=== PATIENT | female | born 1970 | race Caucasian/White ===

== ENCOUNTER 2016-04-27 11:45 | Emergency (ER) | payer OTHER ==
[~2016-04-27] VITALS: Ht 172.7 cm; Wt 134.3 kg
[~2016-04-27 11:45] MED LIST: ADVIL200 MG PO; ALDACTONE100 MG PO; ALEVE220 M2 PO; ALEVE220 MG PO; ALPRAZOLAM0.5 MG PO; AMOXICILLIN875 MG PO; BUPROPION HCL150 M2 PO; BUPROPION HCL75 MG PO; BUPROPION XL150 MG PO; CALCIUM600 MG PO; CALTRATE 600 +1 EAC1 PO; CELEXA20 MG PO; CHOLESTYRAMINE P4 GM PO; CITALOPRAM HBR20 MG PO; CLARITIN10 M3 PO; COMPLETE M9 MG/15 ML PO; CYMBALTA60 MG PO; DEPAKOTE ER500 MG PO; DEPAKOTE250 MG PO; DICYCLOMINE HCL10 MG PO; EXCEDRIN MIGRA1 EAC3 PO; FLEXERIL10 MG PO; GLUCOPHAGE XR750 MG PO; GLUCOPHAGE1000 MG PO; IMITREX25 MG PO; LISINOPRIL5 MG PO; METFORMIN HCL ER PO; METFORMIN HCL500 MG PO; METFORMIN HCL750 MG PO; METOCLOPRAMIDE10 MG PO; MS CONTIN,ORAMO15 M1 PO; MULTI VITAMIN1 EACH PO; NABUMETONE750 MG PO; NEURONTIN300 MG PO; OMEPRAZOLE40 M1 PO; OXAYDO5 MG PO; PEN-VEE K,VEET500 MG PO; PENNSAID112 GM TP; RANITIDINE HCL150 MG PO; REGLAN10 MG PO; REQUIP0.5 MG PO; SPIRONOLACTONE100 MG PO; SUCRALFATE1 GM PO; ULTRAM50 MG PO; VITAMIN D31000 UNIT PO; VITAMIN D32000 UNI1 PO; VITAMIN D35000 UNIT PO; WELLBUTRIN XL300 MG PO; XANAX0.5 MG PO; ZANTAC300 MG PO; ZESTRIL,PRINIVI10 MG PO; ZESTRIL5 MG PO; ZOCOR10 MG PO; ZOFRAN ODT4 MG PO; ZYRTEC-D1 TABLE1 PO; ZYRTEC10 M3 PO
[2016-04-27] MEDS ORDERED: VENTOLIN HFA18 GM IH (16:27)
[2016-04-27 17:02] VITALS: BP 137/77
== END 2016-04-27 17:03 | disposition home or self-care (01) ==
LOC: EXP 11:45 → EME 11:45 → EXP 17:03
DX: J20.9 Acute bronchitis, unspecified (principal); J02.9 Acute pharyngitis, unspecified; R51 Headache; F17.200 Nicotine dependence, unspecified, uncomplicated
CPT/HCPCS: 71020; 94640; 99281; 99284

== ENCOUNTER 2016-10-10 10:39 | Emergency (ER) | payer OTHER ==
[~2016-10-10] VITALS: Ht 172.7 cm; Wt 124.0 kg
[~2016-10-10 10:39] MED LIST changes: +VENTOLIN HFA18 GM IH
[2016-10-10 10:43] VITALS: BP 159/113
[2016-10-10 11:43] LABS: ADD MIUA? YES; BILIRUBIN NEGATIVE; BLOOD NEGATIVE; COLOR YELLOW ((YELLOW)); GLUCOSE (STRIP) NEGATIVE; KETONES NEGATIVE; LEUKOCYTES NEGATIVE; NITRITE NEGATIVE; PROTEIN (STRIP) NEGATIVE; SPECIFIC GRAVITY 1.006 (1.000-1.030); UROBILINOGEN 0.2 MG/DL (0.2-1.0)
[2016-10-10 12:00] LABS: BACTERIA 3+ /HPF; CALCIUM OXALATE CRYSTALS 2+ /HPF; EPITHELIAL CELLS 2+ /HPF; HYALINE CASTS 0-5 /LPF; MUCUS TRACE /LPF; RED BLOOD CELLS 0-5 /HPF (0-5); UCUL ADDED? YES
[2016-10-10] MEDS ORDERED: LIDODERM 5% P1 PATCH TD (12:58)
== END 2016-10-10 13:05 | disposition home or self-care (01) ==
LOC: EME 10:39
PROVIDERS: Nurse Practitioner Family
DX: M54.5 Low back pain (principal); G89.29 Other chronic pain; M47.896 Other spondylosis, lumbar region; F32.9 Major depressive disorder, single episode, unspecified; F17.200 Nicotine dependence, unspecified, uncomplicated
CPT/HCPCS: 72100; 72202; 81003; 87086; 99281; 99284; J3010

== ENCOUNTER 2017-03-02 18:35 | Emergency (ER) | payer OTHER ==
[~2017-03-02] VITALS: Ht 175.3 cm; Wt 129.0 kg
[~2017-03-02 18:35] MED LIST changes: +LIDODERM 5% P1 PATCH TD
[2017-03-02 20:29] LABS: HEMATOCRIT 36.9 % (36.0-46.0); MCH 27.9 PG (29.0-34.0); MCHC 32.5 G/DL (30.0-36.0); MCV 85.8 FL (83-99); MEAN PLAT.VOLUME 9.1 uM^3 (9.5-12.4); PLATELET COUNT 415 K/uL (156-360); RBC DIS.WIDTH-CV 13.9 % (11.8-14.6); RBC DIS.WIDTH-SD 43.1 % (39-53)
[2017-03-02 20:38] LABS: CHLORIDE 107 mEq/L (99-109); POTASSIUM 3.9 mEq/L (3.7-5.4); SODIUM 139 mEq/L (136-147)
[2017-03-02 20:40] LABS: GLUCOSE 100 mg/dL (70-99)
[2017-03-02 20:41] LABS: ANION GAP 8 MEQ/L (2-14)
[2017-03-02 20:42] LABS: TOTAL BILIRUBIN 0.2 mg/dL (0.0-1.0)
[2017-03-02 20:44] LABS: ALKALINE PHOSPHATASE 89 IU/L (3-129); GFR ESTIMATE (CALCULATED) > 59 mL/min/
[2017-03-02 20:45] LABS: UREA NITROGEN (BUN) 11 mg/dL (9-23)
[2017-03-02 20:55] LABS: ADD MIUA? YES; BILIRUBIN NEGATIVE; BLOOD NEGATIVE; COLOR YELLOW ((YELLOW)); GLUCOSE (STRIP) NEGATIVE; KETONES NEGATIVE; LEUKOCYTES TRACE; NITRITE NEGATIVE; PROTEIN (STRIP) NEGATIVE; SPECIFIC GRAVITY 1.012 (1.000-1.030); UROBILINOGEN 0.2 MG/DL (0.2-1.0)
[2017-03-02 21:04] LABS: BACTERIA 1+ /HPF; EPITHELIAL CELLS RARE /HPF; MUCUS TRACE /LPF; RED BLOOD CELLS 0-5 /HPF (0-5); UCUL ADDED? NO; WHITE BLOOD CELLS NONE SEEN /HPF (0-5)
[2017-03-02 21:53] LABS: C-REACTIVE PROTEIN 20.9 MG/L (0-10); SAMPLE HEMOLYSIS CHECK 0; SAMPLE ICTERIC CHECK 0; SAMPLE LIPEMIA CHECK 0
[2017-03-02 21:57] LABS: ERTH.SED.RATE 60 MM/HR (0-20)
[2017-03-03 07:11] VITALS: BP 144/88
== END 2017-03-03 07:11 | disposition short-term general hospital (02) ==
LOC: EME 18:35
PROVIDERS: Physician Assistant
DX: T81.4XXA Infection following a procedure, initial encounter (principal); R51 Headache; Z91.040 Latex allergy status; Z88.6 Allergy status to analgesic agent; Z88.1 Allergy status to other antibiotic agents; Z87.891 Personal history of nicotine dependence
CPT/HCPCS: 70450; 72158; 80053; 81003; 83605; 85027; 85651; 86140; 87040; 87493; 99281; 99285; J1885; J2270; J2405; J7030; J7050